=== PATIENT | male | born 2000 | race Caucasian/White ===

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

== ENCOUNTER 2022-06-14 06:04 | Inpatient (IN) | payer MEDICAID ==
[~2022-06-14] VITALS: Ht 188 cm; Wt 112.2 kg
[~2022-06-14 06:04] MED LIST: RISP2TAB76 PO
[2022-06-14 08:16] LABS: COVID AG,FIA SOURCE NASAL SWAB
[2022-06-14] MEDS ORDERED: LORazepam 2 MG/ML VIAL IM ONE (09:00)
[2022-06-14] MEDS ORDERED: HALOPERIDOL LACTATE 5 MG/ML VIAL IM ONE (09:00)
[2022-06-14] MEDS ORDERED: DiphenhydrAMINE HCL 50 MG/ML VIAL IM ONE (09:00)
[2022-06-14 11:12] LABS: BASOPHILS % (AUTO) 0.2 % (0.0-2.0); EOSINOPHILS % (AUTO) 0.6 % (1.0-6.0); LYMPHOCYTES # (AUTO) 1.6 K/uL (1.0-4.8); LYMPHOCYTES % (AUTO) 26.8 % (22.0-44.0); MEAN CORPUSCULAR HEMOGLOBIN 29.5 pg (26.0-34.0); MEAN CORPUSCULAR HGB CONC 33.3 G/dL (31.0-37.0); MEAN CORPUSCULAR VOLUME 89 fL (80-100); MONOCYTES # (AUTO) 0.6 K/uL (0.1-1.0); MONOCYTES % (AUTO) 9.3 % (2.0-9.0); NEUTROPHILS # (AUTO) 3.9 K/uL (1.8-7.7); NEUTROPHILS % (AUTO) 63.1 % (40.0-70.0); PLATELET COUNT (AUTO) 223 K/uL (150-450); RED BLOOD CELL COUNT(AUTO) 4.74 MIL/uL (4.50-5.90); RED CELL DISTRIBUTION WIDTH 12.8 % (11.5-14.5)
[2022-06-14 11:32] LABS: ANION GAP 6 mmol/L (8-16); CALCIUM, TOTAL 9.3 mg/dL (8.8-10.5); CARBON DIOXIDE 32 mmol/L (22-29); CHLORIDE 104 mmol/L (98-107); CREATININE 0.91 mg/dL (0.60-1.30); GLUCOSE,RANDOM 123 mg/dL (70-110); POTASSIUM 3.8 mmol/L (3.5-5.1); SODIUM SERUM 142 mmol/L (136-145); UREA NITROGEN, BLOOD 16 mg/dL (7-18)
[2022-06-14 11:34] LABS: GLOMERULAR FILTR. RATE CALC > 60 mL/min (>60)
[2022-06-14 11:38] LABS: ALANINE AMINOTRANSFERASE 23 U/L (12-78); ALBUMIN 4.1 g/dL (3.4-5.0); ALKALINE PHOSPHATASE 60 U/L (46-116); ASPARTATE AMINOTRANSFERASE 41 U/L (15-37); BILIRUBIN,TOTAL 0.7 mg/dL (0.1-1.0); TOTAL PROTEIN, SERUM 7.2 g/dL (6.4-8.2)
[2022-06-14] MEDS ORDERED: ZOLPIDEM TARTRATE 10 MG TABLET PO PRN (13:00)
[2022-06-15 00:50] VITALS: BP 103/73
[2022-06-15 08:00] VITALS: BP 127/88
[2022-06-15] MEDS ORDERED: HALOPERIDOL LACTATE 5 MG/ML VIAL ONE (11:32)
[2022-06-15] MEDS ORDERED: DiphenhydrAMINE HCL 50 MG/ML VIAL ONE (11:32)
[2022-06-15] MEDS ORDERED: LORazepam 2 MG/ML VIAL ONE (11:32)
[2022-06-15] MEDS ORDERED: LORazepam 2 MG/ML VIAL IM ONE (11:45)
[2022-06-15] MEDS ORDERED: DiphenhydrAMINE HCL 50 MG/ML VIAL IM ONE (11:45)
[2022-06-15] MEDS ORDERED: HALOPERIDOL LACTATE 5 MG/ML VIAL IM ONE (11:45)
[2022-06-15] MEDS ORDERED: GuaiFENesin/D-METHORPHAN [SUGAR-FREE] 200-20MG/10 ML SYRUP UDCUP PO PRN (12:30)
[2022-06-15] MEDS ORDERED: IBUPROFEN 400 MG TABLET PO PRN (12:30)
[2022-06-15] MEDS ORDERED: ONDANSETRON HCL 4 MG TABLET PO PRN (12:30)
[2022-06-15] MEDS ORDERED: PETROLATUM,WHITE 28 GM JELLY TP PRN (12:30)
[2022-06-15] MEDS ORDERED: ALBUTEROL SULFATE HFA 90 MCG/PUFF 8 GM INHALER IH PRN (12:30)
[2022-06-15] MEDS ORDERED: ACETAMINOPHEN 325 MG TABLET PO PRN (12:30)
[2022-06-15] MEDS ORDERED: LOPERAMIDE HCL 2 MG CAPSULE PO PRN (12:30)
[2022-06-15] MEDS ORDERED: CloNIDine HCL 0.1 MG TABLET PO PRN (12:30)
[2022-06-15] MEDS ORDERED: MAG HYDROX/AL HYDROX/SIMETH ES 30 ML SUSPENSION UDCUP PO PRN (12:30)
[2022-06-15] MEDS ORDERED: MAGNESIUM HYDROXIDE SUSPENSION 30 ML UDCUP PO PRN (12:30)
[2022-06-15] MEDS ORDERED: DOCUSATE SODIUM 100 MG CAPSULE PO PRN (12:30)
[2022-06-15] MEDS ORDERED: NICOTINE 14 MG/24 HOUR PATCH TD PRN (12:30)
[2022-06-15 13:49] LABS: APPEARANCE,URINE CLEAR (CLEAR); BILIRUBIN,URINE NEGATIVE (NEGATIVE); GLUCOSE, URINE (UA) NEGATIVE (NEGATIVE); KETONES,URINE NEGATIVE (NEGATIVE); LEUKOCYTE ESTERASE ,URINE TRACE (NEGATIVE); NITRATE,URINE NEGATIVE (NEGATIVE); OCCULT BLOOD,URINE NEGATIVE (NEGATIVE); PROTEIN,URINE NEGATIVE (NEGATIVE); SPECIFIC GRAVITIY, URINE 1.029 (1.003-1.030); UROBILINOGEN,URINE <=1.0 mg/dL (<=1.0)
[2022-06-15 13:56] LABS: AMPHET/METH SCREEN,URINE NEGATIVE (NEGATIVE); BARBITURATE SCREEN, URINE NEGATIVE (NEGATIVE); BENZODIAZEPINES SCREEN,URINE NEGATIVE (NEGATIVE); CANNABINOID SCREEN,URINE NEGATIVE (NEGATIVE); COCAINE SCREEN,URINE NEGATIVE (NEGATIVE); METHADONE SCREEN, URINE NEGATIVE (NEGATIVE); OPIATE SCREEN,URINE NEGATIVE (NEGATIVE)
[2022-06-15 14:03] LABS: PHENCYCLIDINE SCREEN,URINE NEGATIVE (NEGATIVE)
[2022-06-15 14:05] LABS: RBC,URINE None Seen /HPF (0-2)
[2022-06-15 14:06] LABS: BACTERIA,URINE Rare /HPF (None Seen)
[2022-06-15 16:37] VITALS: BP 136/81
[2022-06-15] MEDS: DIVALPROEX SODIUM 500 MG DR TABLET PO SCH (20:10)
[2022-06-15] MEDS: RisperiDONE 2 MG TABLET PO SCH (20:10)
[2022-06-16 07:43] LABS: ALANINE AMINOTRANSFERASE 25 U/L (12-78); ALBUMIN 3.7 g/dL (3.4-5.0); ALKALINE PHOSPHATASE 52 U/L (46-116); ANION GAP 3 mmol/L (8-16); ASPARTATE AMINOTRANSFERASE 34 U/L (15-37); BILIRUBIN,TOTAL 0.4 mg/dL (0.1-1.0); CALCIUM, TOTAL 8.9 mg/dL (8.8-10.5); CARBON DIOXIDE 31 mmol/L (22-29); CHLORIDE 106 mmol/L (98-107); CREATININE 0.85 mg/dL (0.60-1.30); GLUCOSE,RANDOM 90 mg/dL (70-110); POTASSIUM 3.8 mmol/L (3.5-5.1); SODIUM SERUM 140 mmol/L (136-145); TOTAL PROTEIN, SERUM 6.8 g/dL (6.4-8.2); UREA NITROGEN, BLOOD 15 mg/dL (7-18)
[2022-06-16 07:44] LABS: GLOMERULAR FILTR. RATE CALC > 60 mL/min (>60)
[2022-06-16] MEDS: DIVALPROEX SODIUM 500 MG DR TABLET PO SCH ×2 (08:09→20:03)
[2022-06-16] MEDS: RisperiDONE 2 MG TABLET PO SCH ×2 (08:09→20:03)
[2022-06-16] MEDS: LORazepam 2 MG TABLET PO PRN (08:09)
[2022-06-16 08:15] VITALS: BP 134/104
[2022-06-16 16:01] VITALS: BP 102/71
[2022-06-17] MEDS: LORazepam 2 MG TABLET PO PRN ×2 (05:10→19:20)
[2022-06-17] MEDS: HALOPERIDOL 5 MG TABLET PO PRN (05:10)
[2022-06-17] MEDS: RisperiDONE 2 MG TABLET PO SCH ×2 (08:32→20:47)
[2022-06-17] MEDS: DIVALPROEX SODIUM 500 MG DR TABLET PO SCH ×2 (08:32→20:47)
[2022-06-17 16:04] VITALS: BP 164/98
[2022-06-18 08:07] VITALS: BP 124/79
[2022-06-18] MEDS: DIVALPROEX SODIUM 500 MG DR TABLET PO SCH (08:16)
[2022-06-18] MEDS: RisperiDONE 2 MG TABLET PO SCH (08:16)
[2022-06-18] MEDS ORDERED: DIVA-112 PO (09:59)
[2022-06-18] MEDS ORDERED: RISP2TAB86 PO (09:59)
[2022-06-18] MEDS: HALOPERIDOL 5 MG TABLET PO PRN (10:53)
[2022-06-18] MEDS: LORazepam 2 MG TABLET PO PRN (10:53)
== END 2022-06-18 14:30 | disposition home or self-care (01) | DRG 750 ==
LOC: EMS 06:05 → 3EI 06-15 00:03 → 3EC 06-15 01:19
PROVIDERS: ADMIT Psychiatry & Neurology Psychiatry; ATTEND Psychiatry & Neurology Psychiatry
DX: F25.0 Schizoaffective disorder, bipolar type (principal); F10.10 Alcohol abuse, uncomplicated; Z20.822 Contact with and (suspected) exposure to COVID-19; G47.00 Insomnia, unspecified; Z71.41 Alcohol abuse counseling and surveillance of alcoholic; Z79.899 Other long term (current) drug therapy
CPT/HCPCS: 80053; 80307; 81001; 85025; 96372; 99285; G0480; J1200; J1630; J2060

== ENCOUNTER 2022-07-13 15:38 | Inpatient (IN) | payer MEDICAID ==
[~2022-07-13] VITALS: Ht 188 cm; Wt 114.5 kg
[~2022-07-13 15:38] MED LIST changes: +DIVA-112 PO; -RISP2TAB76 PO; +RISP2TAB86 PO
[2022-07-13 16:10] LABS: BASOPHILS % (AUTO) 0.4 % (0.0-2.0); EOSINOPHILS % (AUTO) 1.3 % (1.0-6.0); HEMATOCRIT 45.4 % (41-53); HEMOGLOBIN 15.1 g/dL (13.5-17.5); LYMPHOCYTES # (AUTO) 1.6 K/uL (1.0-4.8); LYMPHOCYTES % (AUTO) 31.9 % (22.0-44.0); MEAN CORPUSCULAR HEMOGLOBIN 29.8 pg (26.0-34.0); MEAN CORPUSCULAR HGB CONC 33.2 G/dL (31.0-37.0); MEAN CORPUSCULAR VOLUME 90 fL (80-100); MONOCYTES # (AUTO) 0.4 K/uL (0.1-1.0); MONOCYTES % (AUTO) 8.3 % (2.0-9.0); NEUTROPHILS % (AUTO) 58.1 % (40.0-70.0); PLATELET COUNT (AUTO) 241 K/uL (150-450); RED BLOOD CELL COUNT(AUTO) 5.06 MIL/uL (4.50-5.90)
[2022-07-13 16:15] LABS: COVID AG,FIA SOURCE NASOPHARYNGEAL
[2022-07-13 16:18] LABS: ANION GAP 10 mmol/L (8-16); CALCIUM, TOTAL 9.4 mg/dL (8.8-10.5); CARBON DIOXIDE 27 mmol/L (22-29); CHLORIDE 103 mmol/L (98-107); CREATININE 0.86 mg/dL (0.60-1.30); GLUCOSE,RANDOM 131 mg/dL (70-110); POTASSIUM 3.9 mmol/L (3.5-5.1); SODIUM SERUM 140 mmol/L (136-145); UREA NITROGEN, BLOOD 17 mg/dL (7-18)
[2022-07-13 16:20] LABS: GLOMERULAR FILTR. RATE CALC > 60 mL/min (>60)
[2022-07-13 16:24] LABS: ALANINE AMINOTRANSFERASE 14 U/L (12-78); ALBUMIN 4.5 g/dL (3.4-5.0); ALKALINE PHOSPHATASE 67 U/L (46-116); ASPARTATE AMINOTRANSFERASE 6 U/L (15-37); BILIRUBIN,TOTAL 0.3 mg/dL (0.1-1.0)
[2022-07-13 16:24] LABS: AMPHET/METH SCREEN,URINE NEGATIVE (NEGATIVE); BARBITURATE SCREEN, URINE NEGATIVE (NEGATIVE); BENZODIAZEPINES SCREEN,URINE NEGATIVE (NEGATIVE); CANNABINOID SCREEN,URINE NEGATIVE (NEGATIVE); COCAINE SCREEN,URINE NEGATIVE (NEGATIVE); METHADONE SCREEN, URINE NEGATIVE (NEGATIVE); OPIATE SCREEN,URINE NEGATIVE (NEGATIVE); PHENCYCLIDINE SCREEN,URINE NEGATIVE (NEGATIVE)
[2022-07-13] MEDS ORDERED: HALOPERIDOL 5 MG TABLET PO ONE (16:30)
[2022-07-13] MEDS ORDERED: LORazepam 2 MG TABLET PO ONE (16:30)
[2022-07-13] MEDS ORDERED: DiphenhydrAMINE HCL 25 MG CAPSULE PO ONE (16:30)
[2022-07-13] MEDS ORDERED: HALOPERIDOL 5 MG TABLET PO PRN (17:30)
[2022-07-14] MEDS: DIVALPROEX SODIUM 500 MG DR TABLET PO SCH ×2 (10:45→20:06)
[2022-07-14] MEDS: RisperiDONE 2 MG TABLET PO SCH ×2 (10:45→20:05)
[2022-07-14] MEDS: LORazepam 2 MG TABLET PO PRN ×2 (10:57→20:06)
[2022-07-14 16:12] VITALS: BP 144/79
[2022-07-14] MEDS: ZOLPIDEM TARTRATE 10 MG TABLET PO PRN (20:06)
[2022-07-14 20:13] VITALS: BP 138/72
[2022-07-15 08:36] VITALS: BP 112/64
[2022-07-15] MEDS: DIVALPROEX SODIUM 500 MG DR TABLET PO SCH ×3 (08:51→20:10)
[2022-07-15] MEDS: LORazepam 2 MG TABLET PO PRN ×2 (08:51→20:09)
[2022-07-15] MEDS: RisperiDONE 2 MG TABLET PO SCH ×2 (08:51→20:09)
[2022-07-15] MEDS ORDERED: ACETAMINOPHEN 325 MG TABLET PO PRN (16:45)
[2022-07-15] MEDS ORDERED: CloNIDine HCL 0.1 MG TABLET PO PRN (16:45)
[2022-07-15] MEDS ORDERED: LOPERAMIDE HCL 2 MG CAPSULE PO PRN (16:45)
[2022-07-15] MEDS ORDERED: MAG HYDROX/AL HYDROX/SIMETH ES 30 ML SUSPENSION UDCUP PO PRN (16:45)
[2022-07-15] MEDS ORDERED: MAGNESIUM HYDROXIDE SUSPENSION 30 ML UDCUP PO PRN (16:45)
[2022-07-15] MEDS ORDERED: GuaiFENesin/D-METHORPHAN [SUGAR-FREE] 200-20MG/10 ML SYRUP UDCUP PO PRN (16:45)
[2022-07-15] MEDS ORDERED: ALBUTEROL SULFATE HFA 90 MCG/PUFF 8 GM INHALER IH PRN (16:45)
[2022-07-15] MEDS ORDERED: IBUPROFEN 400 MG TABLET PO PRN (16:45)
[2022-07-15] MEDS ORDERED: ONDANSETRON HCL 4 MG TABLET PO PRN (16:45)
[2022-07-15] MEDS ORDERED: PETROLATUM,WHITE 28 GM JELLY TP PRN (16:45)
[2022-07-15] MEDS ORDERED: DOCUSATE SODIUM 100 MG CAPSULE PO PRN (16:45)
[2022-07-15] MEDS ORDERED: NICOTINE 14 MG/24 HOUR PATCH TD PRN (16:45)
[2022-07-15] MEDS: ZOLPIDEM TARTRATE 10 MG TABLET PO PRN (21:52)
[2022-07-16 01:49] VITALS: BP 119/70
[2022-07-16 08:12] VITALS: BP 117/60
[2022-07-16] MEDS: RisperiDONE 2 MG TABLET PO SCH (08:48)
[2022-07-16] MEDS: DIVALPROEX SODIUM 500 MG DR TABLET PO SCH (08:48)
[2022-07-16] MEDS ORDERED: DIVA-112 PO (08:49)
[2022-07-16] MEDS ORDERED: RISP2TAB86 PO (08:49)
== END 2022-07-16 13:10 | disposition home or self-care (01) | DRG 750 ==
LOC: EMS 15:50 → B3A 07-14 09:06
PROVIDERS: ADMIT Psychiatry & Neurology Psychiatry; ATTEND Psychiatry & Neurology Psychiatry
DX: F25.0 Schizoaffective disorder, bipolar type (principal); Z91.14 Patient's other noncompliance with medication regimen; Z79.899 Other long term (current) drug therapy; Z91.51 Personal history of suicidal behavior
CPT/HCPCS: 70450; 70486; 72125; 80053; 80307; 85025; 87081; 99285; G0480

== ENCOUNTER 2024-01-11 09:52 | Emergency (ER) | payer MEDICAID ==
[~2024-01-11] VITALS: Ht 185.4 cm; Wt 106.0 kg
[~2024-01-11 09:52] MED LIST changes: +RISP-32 PO; -RISP2TAB86 PO
[2024-01-11 10:55] VITALS: TEMP 97.9
[2024-01-11 11:21] VITALS: BP 97/52; PULSE 95; RESP 20
[2024-01-11 11:51] LABS: BASOPHILS % (AUTO) 0.3 % (0.0-2.0); EOSINOPHILS % (AUTO) 0.3 % (1.0-6.0); HEMATOCRIT 46.7 % (41-53); HEMOGLOBIN 15.5 g/dL (13.5-17.5); LYMPHOCYTES # (AUTO) 1.5 K/uL (1.0-4.8); LYMPHOCYTES % (AUTO) 22.8 % (22.0-44.0); MEAN CORPUSCULAR HGB CONC 33.3 G/dL (31.0-37.0); MEAN CORPUSCULAR VOLUME 90 fL (80-100); MONOCYTES # (AUTO) 0.5 K/uL (0.1-1.0); MONOCYTES % (AUTO) 7.3 % (2.0-9.0); NEUTROPHILS # (AUTO) 4.4 K/uL (1.8-7.7); NEUTROPHILS % (AUTO) 69.3 % (40.0-70.0); PLATELET COUNT (AUTO) 285 K/uL (150-450); RED BLOOD CELL COUNT(AUTO) 5.17 MIL/uL (4.50-5.90); RED CELL DISTRIBUTION WIDTH 12.8 % (11.5-14.5); WHITE BLOOD COUNT (AUTO) 6.4 K/uL (4.5-11.0)
[2024-01-11 12:00] LABS: ANION GAP 8 mmol/L (8-16); CARBON DIOXIDE 28 mmol/L (22-29); CHLORIDE 101 mmol/L (98-107); CREATININE 0.79 mg/dL (0.60-1.30); GLOMERULAR FILTR. RATE CALC > 60 mL/min (>60); GLUCOSE,RANDOM 95 mg/dL (70-110); POTASSIUM 3.8 mmol/L (3.5-5.1); SODIUM SERUM 137 mmol/L (136-145); UREA NITROGEN, BLOOD 15 mg/dL (7-18)
[2024-01-11 12:07] LABS: ALANINE AMINOTRANSFERASE 23 U/L (12-78); ALBUMIN 4.3 g/dL (3.4-5.0); ALKALINE PHOSPHATASE 63 U/L (46-116); ASPARTATE AMINOTRANSFERASE 19 U/L (15-37); BILIRUBIN,TOTAL 0.8 mg/dL (0.1-1.0)
[2024-01-11 12:39] LABS: ALCOHOL, URINE DRUG SCREEN NEGATIVE (NEGATIVE); AMPHET/METH SCREEN,URINE NEGATIVE (NEGATIVE); BARBITURATE SCREEN, URINE NEGATIVE (NEGATIVE); BENZODIAZEPINES SCREEN,URINE NEGATIVE (NEGATIVE); CANNABINOID SCREEN,URINE NEGATIVE (NEGATIVE); COCAINE SCREEN,URINE NEGATIVE (NEGATIVE); METHADONE SCREEN, URINE NEGATIVE (NEGATIVE); OPIATE SCREEN,URINE NEGATIVE (NEGATIVE); PHENCYCLIDINE SCREEN,URINE NEGATIVE (NEGATIVE)
[2024-01-12 03:06] LABS: HIV 1-2 SCREEN 4TH GEN W/RFLX Non Reactive (Non Reactive)
== END 2024-01-11 13:40 ==
LOC: EMS 09:53
DX: S00.531A Contusion of lip, initial encounter (principal); F20.9 Schizophrenia, unspecified; Y08.89XA Assault by other specified means, initial encounter; Y93.89 Activity, other specified; Y92.89 Other specified places as the place of occurrence of the external cause; Y99.8 Other external cause status
CPT/HCPCS: 80053; 80307; 85025; 86706; 87340; 87389; 99283